=== PATIENT | male | born 1955 ===

== ENCOUNTER 2022-10-24 13:11 | Day surgery (SDC) | payer MEDICARE, OTHER ==
[~2022-10-24] VITALS: Ht 180.3 cm; Wt 81.9 kg
[~2022-10-24 13:11] MED LIST: ATOR10 PO; Aspir 8181 MG PO; Cyclobenzaprine5 MG PO; HUMALOG JU100 UNIT/2 SQ; LOSA25 PO; METO25ER PO; NITROGLYCERIN0.4 M3 SL
[2022-10-24] MEDS ORDERED: ERGO400 (14:27)
--- NOTE | 2022-10-24 16:14 | NUR ---
10/24/22 1614 HARMEET DEE CHEM [id number]
== END 2022-10-24 16:47 | disposition home or self-care (01) ==
LOC: ORSCSDS 13:11
PROVIDERS: Internal Medicine Gastroenterology
PROC: 0DBK8ZX Excision of Ascending Colon, Via Natural or Artificial Opening Endoscopic, Diagnostic (ICD-10-PCS; principal; 2022-10-24 14:30)
DX: R19.5 Other fecal abnormalities (principal); K63.5 Polyp of colon; K57.30 Diverticulosis of large intestine without perforation or abscess without bleeding; E11.9 Type 2 diabetes mellitus without complications; I25.10 Atherosclerotic heart disease of native coronary artery without angina pectoris; I10 Essential (primary) hypertension; Z79.82 Long term (current) use of aspirin; Z79.4 Long term (current) use of insulin; Z79.899 Other long term (current) drug therapy
CPT/HCPCS: 82947; 88305; J0330; J0461; J2405; J2704; J7120; Q9968

== ENCOUNTER 2025-08-19 06:54 | Day surgery (SDC) | payer MEDICARE, OTHER ==
[~2025-08-19] VITALS: Ht 177.8 cm; Wt 81.8 kg
[~2025-08-19 06:54] MED LIST changes: +ERGO400
[2025-08-19 09:51] VITALS: BP 122/62
== END 2025-08-19 09:35 | disposition home or self-care (01) ==
LOC: ORSCSDS 06:54
PROVIDERS: Internal Medicine Gastroenterology
PROC: 0DB58ZX Excision of Esophagus, Via Natural or Artificial Opening Endoscopic, Diagnostic (ICD-10-PCS; principal; 2025-08-19 08:30)
DX: R13.10 Dysphagia, unspecified (principal); B37.81 Candidal esophagitis; K44.9 Diaphragmatic hernia without obstruction or gangrene; R05.3 Chronic cough; Z80.0 Family history of malignant neoplasm of digestive organs; E10.9 Type 1 diabetes mellitus without complications; G47.30 Sleep apnea, unspecified; Z79.82 Long term (current) use of aspirin; Z79.4 Long term (current) use of insulin; Z79.899 Other long term (current) drug therapy
CPT/HCPCS: 82947; J2704; J7120